=== PATIENT | female | born 1985 | race Caucasian/White ===

== ENCOUNTER 2017-12-08 18:49 | Emergency (ER) | payer MEDICAID ==
[2017-12-08] MEDS ORDERED: Sulfamethoxazole/Trimethoprim 800-160 MG Tab PO ONE (19:18)
--- NOTE | 2017-12-08 20:13 | ER ---
DATE SEEN: 12/08/2017 TIME SEEN: 1915 hours. REASON FOR VISIT: Pain, right ear. HISTORY OF PRESENT ILLNESS: This is a 32-year-old female with pain in the right ear, earlobe after piercing a week ago. She has noted redness and extreme pain even to touch. There has been no drainage. REVIEW OF SYSTEMS: She has no systemic symptoms, nausea, vomiting, headache, or fever. ALLERGIES: She has no known allergies. PHYSICAL EXAMINATION: VITAL SIGNS: She is afebrile. Blood pressure is 145/95. EARS: Right pinna revealed several piercings and redness of the pinna. Exquisite tenderness to palpation. IMPRESSION: Cellulitis of the right pinna. PLAN: 1. Bactrim DS b.i.d. one tablet. 2. Warm compresses. 3. If able I advised her to remove the piercings until she is healed. She should come to the ER with any worsening symptoms. /[id number] 2004 [place]
== END 2017-12-08 19:30 | disposition home or self-care (01) ==
LOC: FB.ED 18:49
DX: H60.11 Cellulitis of right external ear (principal)
CPT/HCPCS: 99282; A9270-GY

== ENCOUNTER 2023-05-18 06:45 | Day surgery (SDC) | payer BC ==
[~2023-05-18 06:45] MED LIST: Lactated Ringers 1,000 ML IV SCH; Sodium Chloride 0.9% 10 ML Syringe FLUSH PRN
[2023-05-18] MEDS ORDERED: Lidocaine 2% 5 ML SDV IV ONE (06:46)
[2023-05-18] MEDS ORDERED: Propofol 200 MG/20 ML SDV IV ONE (06:46)
[2023-05-18] MEDS ORDERED: Simethicone Drops 40 MG/0.6 ML 30 ML Bottle PO ONE (08:00)
[2023-05-18 09:30] VITALS: BP 144/94; PULSE 103
[2023-05-20 20:08] LABS: ADENOVIRUS F 40/41 Not Detected (Not Detected); ASTROVIRUS Not Detected (Not Detected); C DIFFICILE TOXIN A/B Not Detected (Not Detected); CAMPYLOBACTER Not Detected (Not Detected); CRYPTOSPORIDIUM Not Detected (Not Detected); CYCLOSPORA CAYETANENSIS Not Detected (Not Detected); ENTAMOEBA HISTOLYTICA Not Detected (Not Detected); ENTEROAGGREGATIVE E COLI Not Detected (Not Detected); ENTEROPATHOGENIC E COLI Not Detected (Not Detected); ENTEROTOXIGENIC E COLI Not Detected (Not Detected); GIARDIA LAMBLIA Not Detected (Not Detected); NOROVIRUS GI/GII Not Detected (Not Detected); PLESIOMONAS SHIGELLOIDES Not Detected (Not Detected); ROTAVIRUS A Not Detected (Not Detected); SALMONELLA Not Detected (Not Detected); SAPOVIRUS Not Detected (Not Detected); SHIGA-TOXIN-PRODUCING E COLI Not Detected (Not Detected); SHIGELLA/ENTEROINVASIVE E COLI Not Detected (Not Detected); VIBRIO Not Detected (Not Detected); VIBRIO CHOLERAE Not Detected (Not Detected); YERSINIA ENTEROCOLITICA Not Detected (Not Detected)
== END 2023-05-18 09:26 | disposition home or self-care (01) ==
LOC: FB.SDS 06:45
PROVIDERS: ATTEND Surgery
DX: K62.5 Hemorrhage of anus and rectum (principal); R19.7 Diarrhea, unspecified; R10.31 Right lower quadrant pain; F41.1 Generalized anxiety disorder; M54.50 Low back pain, unspecified; G89.29 Other chronic pain; F41.0 Panic disorder [episodic paroxysmal anxiety]; R10.2 Pelvic and perineal pain; F32.A Depression, unspecified; Z87.19 Personal history of other diseases of the digestive system; Z79.82 Long term (current) use of aspirin; Z79.899 Other long term (current) drug therapy; Z87.891 Personal history of nicotine dependence
CPT/HCPCS: 00812; 87507; 89055; A9270-GY; J2704; J7120

== ENCOUNTER 2024-05-18 13:36 | Emergency (ER) | payer BC ==
[2024-05-18] MEDS ORDERED: Sodium Chloride 0.9% 10 ML Syringe FLUSH PRN (14:00)
[2024-05-18 14:30] LABS: BASOPHILS PERCENT AUTO 0.4 % (0.2-1.5); EOSINOPHILS ABSOLUTE AUTO 0.2 x10-3/uL (0.0-0.8); HEMATOCRIT 43.5 % (34.2-48.2); HEMOGLOBIN 14.7 g/dL (11.4-15.5); LYMPHOCYTES ABSOLUTE AUTO 2.2 x10-3/uL (1.0-4.4); LYMPHOCYTES PERCENT AUTO 30.4 % (18.4-52.1); MEAN CORPUSCULAR HGB CONC 33.8 g/dL (31.9-34.8); MEAN CORPUSCULAR VOLUME 85.9 fL (76.7-100.5); MEAN PLATELET VOLUME 7.7 fL (7.1-12.4); MONOCYTES ABSOLUTE AUTO 0.6 x10-3/uL (0.3-1.0); NEUTROPHILS ABSOLUTE AUTO 4.2 x10-3/uL (1.5-6.3); NEUTROPHILS PERCENT AUTO 58.2 % (30.8-76.2); PLATELET COUNT,PLT 323 x10(3)uL (151-488); RED BLOOD CELL COUNT 5.06 x10(6)uL (3.60-5.20); RED CELL DISTRIBUTION WIDTH 12.2 % (12.3-16.5); WHITE BLOOD CELL COUNT,WBC 7.2 x10-3/uL (3.0-10.3)
[2024-05-18] MEDS: Nitroglycerin 0.4 MG Tab.SL SL PRN (14:33)
[2024-05-18] MEDS: Sodium Chloride 0.9% 1,000 ML IV SCH (14:33)
[2024-05-18 14:35] LABS: BLOOD UREA NITROGEN,BUN 10 mg/dL (7-18); BUN/CREATININE RATIO 11.1 (9-20); CALCIUM 8.7 mg/dL (8.6-10.2); CARBON DIOXIDE,CO2 28 mmol/L (21-32); CHLORIDE,CL 102 mmol/L (100-110); CREATININE 0.9 mg/dL (0.55-1.02); ESTIMATED GFR 84 mL/min (>60); GLUCOSE RANDOM 102 mg/dL (80-116); POTASSIUM,K 4.3 mmol/L (3.5-5.3); SODIUM,NA 137 mmol/L (135-145)
[2024-05-18] MEDS: Sodium Chloride 0.9% 500 ML IV ONE (14:35)
[2024-05-18 14:41] LABS: A/G RATIO 0.9; ALANINE AMINOTRANSFERASE,ALT 40 U/L (12-36); ALBUMIN 3.7 g/dL (3.5-5.2); ALKALINE PHOSPHATASE 101 IU/L (56-112); ASPARTATE AMNIOTRANSFERASE,AST 18 IU/L (5-25); BILIRUBIN TOTAL 0.3 mg/dL (0.1-1.3); MAGNESIUM 2.1 mg/dL (1.8-2.5); PROTEIN TOTAL,TP 7.9 g/dL (6.0-8.0)
[2024-05-18] MEDS: LORazepam 2 MG/ML SDV IVPUSH ONE (14:57)
== END 2024-05-18 17:47 | disposition home or self-care (01) ==
LOC: FB.ED 13:36
DX: R07.89 Other chest pain (principal); F41.9 Anxiety disorder, unspecified; E86.0 Dehydration; E66.9 Obesity, unspecified; Z87.891 Personal history of nicotine dependence; Z79.899 Other long term (current) drug therapy; Z68.33 Body mass index [BMI] 33.0-33.9, adult
CPT/HCPCS: 36415; 71045; 80053; 81025; 83735; 84484; 85025; 85379; 93005; 93010; 96374; 99284; 99285-25; A9270-GY; J2060; J7030; J7040